=== PATIENT | male | born 1975 | race Caucasian/White ===

== ENCOUNTER 2019-12-17 10:23 | Observation (INO) ==
[2019-12-17] MEDS ORDERED: methylPREDNISolone 125 MG/2 ML VIAL IVP ONE (10:38)
[2019-12-17] MEDS ORDERED: 0.9 % Sodium Chloride 1,000 ML IVC ONE (10:38)
[2019-12-17] MEDS ORDERED: Ipratropium/Albuterol Neb 3 ML IH ONE (10:38)
[2019-12-17 11:04] LABS: Basophils % 0.1 %; Eosinophils % 0.1 %; Hemoglobin 15.4 g/dL (12.9-16.9); Immature Granulocytes % 0.4 % (0-4); Lymphocytes % 13.8 %; Mean Corpuscular HGB Conc 32.8 g/dL (31.6-35.5); Mean Corpuscular Hemoglobin 28.8 pg (28.0-33.3); Mean Corpuscular Volume 87.9 fL (83.0-100.0); Mean Platelet Volume 10.1 fL (9.4-12.4); Monocytes # 0.8 K/mcL (0.0-1.3); Monocytes % 11.6 %; Neutrophils # 5.2 K/mcL (1.6-8.9); Platelet Count 190 K/mcL (140-400); Red Blood Count 5.35 M/mcL (4.19-5.50); Red Cell Distribution Width 13.1 % (11.5-14.5)
[2019-12-17 11:23] LABS: Alanine Aminotransferase 17 Units/L (7-52); Albumin 3.7 g/dL (3.5-5.7); Albumin/Globulin Ratio 1.2 (1.1-2.2); Alkaline Phosphatase 82 Units/L (34-104); Aspartate Amino Transferase 16 Units/L (13-39); BUN/Creatinine Ratio 17 (6-26); Bilirubin,Direct 0.1 mg/dL (0.0-0.2); Bilirubin,Indirect 0.3 mg/dL (0.0-1.0); Bilirubin,Total 0.4 mg/dL (0.3-1.0); Blood Urea Nitrogen 12 mg/dL (6-20); Carbon Dioxide 28 mEq/L (23-29); Chloride 101 mEq/L (98-107); Globulin 3.2 g/dL (2.4-3.5); Glucose 163 mg/dL (70-105); Osmolality,Calculated 289 (280-300); Sodium 138 mEq/L (136-145); Total Protein 6.9 g/dL (6.4-8.9); eGFR For African Americans > 60 (> 60); eGFR For Non-African Americans > 60 (> 60)
[2019-12-17 11:39] LABS: Troponin I < 0.03 ng/mL (< 0.04)
[2019-12-17] MEDS ORDERED: Azithromycin 500 MG in 0.9 % Sodium Chloride 250 ML IVPB ONE (12:02)
[2019-12-17 12:03] LABS: Bilirubin,Urine Negative (Negative); Blood,Urine Trace-intact (Negative); Clarity,Urine Clear (Clear); Color,Urine Dark Yellow (Yellow); Glucose,Urine (UA) Normal (Normal); Ketones,Urine Negative (Negative); Leukocyte Esterase,Urine Negative (Negative); Nitrite,Urine Negative (Negative); Protein,Urine 30 mg/dL (Neg-Trace); Urobilinogen,Urine Normal (Normal)
[2019-12-17 12:10] LABS: Hyaline Casts,Urine Few per lpf (None-Few); Squamous Epithelial Cell,Urine Few per lpf (None-Few); WBC,Urine 0-3 per hpf (0-3)
[2019-12-17 12:11] LABS: Bacteria,Urine Few per hpf (None-Few); Granular Casts,Urine Few per lpf (None Seen); Mucus,Urine Moderate per lpf (Few)
[2019-12-17] MEDS ORDERED: Ondansetron ODT 4 MG TAB.RAPDIS SL PRN (13:01)
[2019-12-17] MEDS ORDERED: Naloxone 0.4 MG/ML INJ IVP PRN (13:01)
[2019-12-17] MEDS ORDERED: Azithromycin 500 MG in 0.9 % Sodium Chloride 250 ML IVPB SCH (14:00)
[2019-12-17 14:16] LABS: Amphetamine Screen,Urine Negative ng/mL (Cutoff=1000); Barbiturate Screen,Urine Negative ng/mL (Cutoff=200); Benzodiazepines Screen,Urine Negative ng/mL (Cutoff=200); Cannabinoid Screen,Urine Negative ng/mL (Cutoff = 50); Cocaine Screen,Urine Negative ng/mL (Cutoff= 300); Opiate Screen,Urine Positive ng/mL (Cutoff=300); Phencyclidine Screen,Urine Negative ng/mL (Cutoff=25)
[2019-12-17] MEDS: MethylPREDNISolone 40 MG/ML VIAL IVP SCH (16:46)
[2019-12-17] MEDS: Ipratropium/Albuterol Neb 3 ML IH SCH ×2 (17:07→22:33)
[2019-12-17 18:16] LABS: Adenovirus Not Detected (Not Detect); Bordetella Pertussis Not Detected (Not Detect); Chlamydophila pneumoniae Not Detected (Not Detect); Coronavirus 229E Not Detected (Not Detect); Coronavirus HKU1 Not Detected (Not Detect); Coronavirus NL63 Not Detected (Not Detect); Coronavirus OC43 Not Detected (Not Detect); Human Metapneumovirus DETECTED (Not Detect); Human Rhinovirus/Enterovirus Not Detected (Not Detect); Influenza A Subtype 2009 H1 Not Detected (Not Detect); Influenza B Not Detected (Not Detect); Mycoplasma pneumoniae Not Detected (Not Detect); Parainfluenza Virus 1 Not Detected (Not Detect); Parainfluenza Virus 2 Not Detected (Not Detect); Parainfluenza Virus 3 Not Detected (Not Detect); Parainfluenza Virus 4 Not Detected (Not Detect); Respiratory Syncytial Virus Not Detected (Not Detect)
[2019-12-18] MEDS: MethylPREDNISolone 40 MG/ML VIAL IVP SCH ×2 (00:29→06:04)
[2019-12-18] MEDS: Ipratropium/Albuterol Neb 3 ML IH SCH ×2 (03:38→10:10)
[2019-12-18 05:40] LABS: Hematocrit 44.3 % (37.5-50.1); Hemoglobin 14.6 g/dL (12.9-16.9); Mean Corpuscular Volume 88.1 fL (83.0-100.0); Mean Platelet Volume 10.3 fL (9.4-12.4); Platelet Count 189 K/mcL (140-400); Red Blood Count 5.03 M/mcL (4.19-5.50); Red Cell Distribution Width 12.8 % (11.5-14.5); White Blood Count 3.6 K/mcL (4.3-11.1)
[2019-12-18 06:00] LABS: BUN/Creatinine Ratio 22 (6-26); Blood Urea Nitrogen 14 mg/dL (6-20); Calcium 8.8 mg/dL (8.6-10.3); Carbon Dioxide 27 mEq/L (23-29); Chloride 102 mEq/L (98-107); Glucose 233 mg/dL (70-105); Osmolality,Calculated 292 (280-300); Potassium 4.3 mEq/L (3.5-5.1); Sodium 137 mEq/L (136-145); eGFR For African Americans > 60 (> 60); eGFR For Non-African Americans > 60 (> 60)
[2019-12-18 07:40] VITALS: BP 146/90
[2019-12-18] MEDS ORDERED: *HR* Dextrose 50 % in Water (Vial) 50 ML VIAL IVP PRN (07:45)
[2019-12-18] MEDS ORDERED: D5% in Water 1,000 ML IVC PRN (07:45)
[2019-12-18] MEDS ORDERED: Dextrose Gel 15 GM/37.5 ML TUBE PO PRN ×2 (07:45)
[2019-12-18] MEDS ORDERED: cefTRIAXone 2,000 MG in 0.9 % Sodium Chloride Mini Bag 100 ML IVPB SCH (09:00)
[2019-12-18 10:10] LABS: Estimated Average Glucose 171 mg/dl
[2019-12-18] MEDS ORDERED: Insulin LISPRO 300 UNITS/3 ML VIAL SQ SCH ×2 (11:30→21:00)
== END 2019-12-18 12:32 | disposition home health service (06) ==
LOC: INPPIK 10:23 → EMEROOPIK 10:23 → INPPIK 13:08
PROVIDERS: ADMIT Family Medicine; ATTEND Family Medicine